=== PATIENT | male | born 1975 | race Caucasian/White ===

== ENCOUNTER 2024-11-18 15:06 | Emergency (ER) | payer MEDICAID, SELFPAY ==
[2024-11-18 15:07] VITALS: BP 127/81; PULSE 112; RESP 18; TEMP 36.8; O2SAT 98
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
[2024-11-18 15:42] VITALS: PULSE 102; RESP 16; O2SAT 97
[2024-11-18 15:42] LABS: Basophils # 0.1 10^3/uL (0.0-0.1); Basophils % 0.6 %; Eosinophils # 0.3 10^3/uL (0.0-0.8); Eosinophils % 2.9 %; Hematocrit 45.5 % (37-53); Lymphocytes # 1.9 10^3/uL (0.8-4.8); Lymphocytes % 18.2 %; Mean Corpuscular HGB Conc 34.1 g/dL (30-55); Mean Corpuscular Hemoglobin 29.3 pg (27-33); Mean Platelet Volume 9.5 fL (7.4-10.4); Monocytes # 0.9 10^3/uL (0.2-0.9); Monocytes % 8.4 %; Neutrophils % 69.6 %; Nucleated Red Blood Cells % 0 %; Platelet Count 367 10^3/cmm (157-399); Red Blood Count 5.29 10^6/uL (3.85-5.65); Red Cell Distribution Width 13.6 % (12.1-15.1); White Blood Count 10.62 10^3/uL (3.29-11.43)
[2024-11-18 15:46] LABS: Bilirubin Urine Negative (Negative); Blood Urine Negative (Negative); Glucose Urine UA Negative (Normal); Ketones Urine Trace (Negative); Leukocyte Esterase Urine Negative (Negative); Nitrate Urine Negative (Negative); Protein Urine 2+ (Negative); Specific Gravity, Urine 1.024 (1.005-1.030); Urine Appearance Turbid (CLEAR); Urine Color Dark Yellow (Yellow); pH Urine 5.5 (5-7)
[2024-11-18] MEDS: LORazepam 2 mg/mL INJ 1 mL IM (15:46)
[2024-11-18] MEDS: water for injection-sterile 10 ML 1.2 ML (15:46)
[2024-11-18] MEDS: ziprasidone 20 mg/mL SDV IM (15:46)
[2024-11-18 15:49] LABS: Bacteria Urine None Seen /hpf; RBC Urine 0-2 /hpf (0-2); Squamous Epithelial Cell Urine 0-5 /hpf (0-5); WBC Urine 0-5 /hpf (0-5)
[2024-11-18 15:54] LABS: Amphetamines Screen Urine Positive (Negative); Barbiturates Screen Urine Negative (Negative); Benzodiazepines Screen Urine Negative (Negative); Cocaine Screen Urine Negative (Negative); Opiate Screen Urine Negative (Negative); PCP Screen Urine Negative (Negative); THC Screen Urine Positive (Negative)
[2024-11-18 15:57] LABS: Add Urine Culture? No; Amorphous Sediment Urine TRACE /hpf; Sperm Urine 1+ /hpf; UA Slide Review UA Slide Review Perf
[2024-11-18 16:00] VITALS: BP 118/68; PULSE 89; RESP 14; O2SAT 99
[2024-11-18 16:13] LABS: Alanine Aminotransferase 16 U/L (0-41); Albumin Level 4.7 g/dL (3.5-5.2); Alkaline Phosphatase 88 U/L (40-130); Aspartate Amino Transferase 17 U/L (0-40); Blood Urea Nitrogen 15 mg/dL (6-20); Calcium 9.6 mg/dL (8.5-10.5); Carbon Dioxide 23 mmol/L (22-29); Chloride 103 mmol/L (98-107); Globulin 2.7 g/dL (1.3-4.6); Glomerular Filtration Rate 58.9 mL/min (90-130); Glucose 103 mg/dL (65-115); Osmolality Calculated 291 mOsm/kg (285-295); Sodium 140 mmol/L (136-145); Thyroid Stimulating Hormone 1.28 uIU/mL (0.27-4.20); Total Bilirubin 0.6 mg/dL (0.15-1.2); Total Protein 7.4 g/dL (6.6-8.7)
[2024-11-18 16:15] LABS: Acetaminophen < 5.0 ug/mL (10-30); Alcohol Level < 10 mg/dL (0-10); Salicylate < 0.3 mg/dL (3-10)
--- NOTE | 2024-11-18 16:25 | XRR_ITS ---
PROCEDURE INFORMATION: Exam: XR Chest Exam date and time: 11/18/2024 4:30 PM Age: 49 years old Clinical indication: Other: Psychiatric work up TECHNIQUE: Imaging protocol: Radiologic exam of the chest. Views: 1 view. COMPARISON: No relevant prior studies available. FINDINGS: Lungs: Unremarkable. No consolidation. Pleural spaces: Unremarkable. No pleural effusion. No pneumothorax. Heart/Mediastinum: Unremarkable. No cardiomegaly. Bones/joints: Unremarkable. XR/XR chest 1V portable [id number] IMPRESSION: No acute findings.
--- NOTE | 2024-11-18 16:46 | ECG_ITS ---
[facility] 2024[facility]11[facility]18 Pat Name: Miguel Bautista Department: Room: Gender: Male Supervisor Adult Education: : 1975 Requested By: Lisa Rosenberg Order Number: [id number] Jose Del Toro MD: Donovan Juan M.D. Measurements Intervals Olga Rate: 91 P: 0 PA: 0 QRS: 46 QRSD: 92 T: 67 QT: 352 QTc: 433 Interpretive Statements Possible multifocal atrial rhythm POSSIBLE RIGHT VENTRICULAR CONDUCTION DELAY [RSR (QR) IN V1/V2] ABNORMAL RHYTHM ECG No previous ECG available for comparison Electronically Signed On 11-18-2024 21:31:16 CONTROL CLERK HEAD by Donovan Juan M.D. [email or web address]
[2024-11-18 17:11] LABS: Covid PCR NEGATIVE (Negative); Influenza A NEGATIVE (Negative); Influenza B NEGATIVE (Negative); Respiratory Syncytial Virus Ce NEGATIVE (Negative)
--- NOTE | 2024-11-18 19:36 | PC.NURSE ---
Contacted Kristen at [facility] [address] @ [phone] for report. was told to delay report until morning when patient left with EMS.
[2024-11-18 19:59] VITALS: BP 120/69; PULSE 72; O2SAT 99
== END 2024-11-18 21:30 ==
PROVIDERS: Emergency Provider Emergency Medicine; Family Provider Nurse Practitioner Family
DX: F32.A Depression, unspecified (principal); R45.851 Suicidal ideations; Z11.52 Encounter for screening for COVID-19; F15.10 Other stimulant abuse, uncomplicated
CPT/HCPCS: 36415; 71045; 80053; 80306; 80307; 81001; 84443; 85025; 87637; 93005; 96372; 99285; J2060; J3486